=== PATIENT | male | born 1970 | race African-American/Black ===

== ENCOUNTER 2017-01-27 13:17 | Emergency (ER) | payer MEDICAID, OTHER ==
[~2017-01-27] VITALS: Ht 177.8 cm; Wt 103.9 kg
[~2017-01-27 13:17] MED LIST: CYCLOBENZAPRINE10 MG ORAL; TRAMADOL HCL50 MG ORAL
[2017-01-27] MEDS ORDERED: NKM (13:42)
[2017-01-27] MEDS ORDERED: Norco 5mg/325mg tab ORAL ONE (14:30)
[2017-01-27] MEDS ORDERED: NORCO 5-325 TA1 EAC1 ORAL (14:51)
[2017-01-27] MEDS ORDERED: IBUPROFEN600 MG ORAL (14:51)
[2017-01-27 14:55] VITALS: BP 124/86
--- NOTE | 2017-01-27 16:56 | Diagnostic Imaging Report ---
Indication: Left ankle pain Technique: 3 views of the left ankle Comparison: none Findings: Small osseous fragment seen at the tip of the medial malleolus, displaced by about 3 mm. Unusual small osseous fragment is seen adjacent to the posterior malleolus as well. There is overlying soft tissue swelling. The joint spaces are preserved. There is a large obtained spur Impression: Positive for medial and posterior malleolar avulsion fractures, suspect acute may correlate with clinical findings Soft tissue swelling Degenerative changes, as described
--- NOTE | 2017-01-27 22:42 | Emergency Room Report ---
History of Present Illness General Chief Complaint: Lower Extremity Injury Source: Patient (RENNY EASLEY) Present Illness Allergies: Coded Allergies: No Known Allergies (Unverified , 06/21/14) Patient History Past Medical History: see triage record Pertinent Family History: none Reviewed Nursing Documentation: PMH: Agreed, PSxH: Agreed (RENNY EASLEY) Nursing Documentation-PMH Past Medical History: No Stated History (RENNY EASLEY) Review of Systems All Other Systems: negative except mentioned in HPI (RENNY EASLEY) Physical Exam Vital Signs Date Time Temp Pulse Resp B/P (MAP) Pulse Ox O2 Delivery O2 Flow Rate FiO2 01/27/17 13:38 98.2 82 16 124/86 97 Room Air Sp02 EP Interpretation: reviewed, normal General Appearance: no apparent distress, alert, GCS 15, non-toxic Head: normocephalic, atraumatic Eyes: bilateral eye normal inspection, bilateral eye PERRL Musculoskeletal: no calf tenderness, decreased range of motion - L ankle, swelling - L ankle diffuse, tender - L ankle Neurologic: alert, oriented x3, responsive, motor strength/tone normal, sensory intact, speech normal Psychiatric: judgement/insight normal, memory normal, mood/affect normal, no suicidal/homicidal ideation Skin: normal color, no rash, warm/dry, well hydrated (RENNY EASLEY) Procedures Splinting Splinting : Consent: Verbal Location: L leg Hand-Made Type: plaster Splint: poserior short Pre-Proc Neuro Vasc Exam: normal Post-Proc Neuro Vasc Exam: normal Patient Tolerated: Well Complications: None (RENNY EASLEY.James) Medical Decision Making PA Attestation Dr. Shrestha is my supervising physician. Patient management was discussed with my supervising physician (RENNY EASLEY) Diagnostic Impression: Primary Impression: Ankle fracture Qualified Codes: S82.892A - Other fracture of left lower leg, initial encounter for closed fracture Additional Impression: Ankle sprain Qualified Codes: S93.402A - Sprain of unspecified ligament of left ankle, initial encounter ER Course The patient is a 46-year-old male presenting for left ankle pain. Ddx considered include but not limited to sprain/strain, fracture, contusion Physical exam: Vitals within normal limits. No apparent distress Left ankle: There is tenderness to palpation and edema over the L ankle diffusely. Limited active range of motion. Sensation intact to light touch. X-ray of the left ankle shows fractures of medial and posterior malleoli. L leg short posterior splint palced and the patient is provided crutches. ER precautions are given. Patient given prescription for Motrin and will follow up with ORTHO as soon as possible. (RENNY EASLEY) ER Course I reviewed and agree with PA's interpretation of XR results. Electronically signed by Fritz Shrestha MD (Fritz Shrestha M.D.) Other X-Ray Diagnostic Results Other X-Ray Diagnostic Results : X-Ray ordered: L ankle # of Views/Limited Vs Complete: 3 View Indication: Pain EP Interpretation: Yes Interpretation: no dislocation, other - fracture Impression: Other - fracture Electronically Signed by: JERRICA Melgar Scribe Text I have reviewed the xray with my supervising physician and interpretation is that there is no dislocation. There are two chip fractures (RENNY EASLEY P.ACourtney) Last Vital Signs Date Time Temp Pulse Resp B/P (MAP) Pulse Ox O2 Delivery O2 Flow Rate FiO2 01/27/17 14:55 98.2 89 20 124/86 100 Room Air Status: improved (RENNY EASLEY P.A.) Disposition: HOME, SELF-CARE Condition: Improved Scripts Hydrocodone Bit/Acetaminophen 5-325* (NORCO 5-325 TABLET*) 1 Each Tablet 1 TAB ORAL Q6HR Y for For Pain, #12 TAB Prov: RENNY EASLEY P.A. 01/27/17 Ibuprofen* (MOTRIN*) 600 Mg Tablet 600 MG ORAL Q8H Y for For Pain, #30 TAB 0 Refills Prov: RENNY EASLEY P.A. 01/27/17 Patient Instructions: Ankle Sprain, Ankle Fracture Additional Instructions: I discussed my findings with the patient. All questions and concerns have been answered. Treatment and medication compliance have been addressed. Return to ED if pain remains or worsens, numbness or tingling occurs, new rash is noticed, fever is noticed, or if needed for any reason. Patient verbalized understanding of discharge instructions. Please follow up with orthopedics as soon as possible RENNY EASLEY Jan 27, 2017 22:42 Fritz Shrestha M.D. Feb 01, 2017 06:25
== END 2017-01-27 14:55 | disposition home or self-care (01) ==
LOC: EMR 14:16
DX: S82.892A Other fracture of left lower leg, initial encounter for closed fracture (principal); S93.402A Sprain of unspecified ligament of left ankle, initial encounter; X58.XXXA Exposure to other specified factors, initial encounter; Y92.9 Unspecified place or not applicable
CPT/HCPCS: 29505; 99284

== ENCOUNTER 2017-03-16 16:35 | Emergency (ER) | payer MEDICAID, OTHER ==
[~2017-03-16] VITALS: Ht 177.8 cm; Wt 102.5 kg
[~2017-03-16 16:35] MED LIST changes: +IBUPROFEN600 MG ORAL; +NKM; +NORCO 5-325 TA1 EAC1 ORAL
[2017-03-16] MEDS ORDERED: IBUPROFEN600 MG ORAL (17:02)
[2017-03-16] MEDS ORDERED: NORCO 5-325 TA1 EAC1 ORAL (17:02)
[2017-03-16 17:15] VITALS: BP 135/88
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
== END 2017-03-16 17:15 | disposition home or self-care (01) ==
LOC: EDBD 16:35 → EMR 17:00
DX: S82.892D Other fracture of left lower leg, subsequent encounter for closed fracture with routine healing (principal); V29.9XXD Motorcycle rider (driver) (passenger) injured in unspecified traffic accident, subsequent encounter
CPT/HCPCS: 99283

== ENCOUNTER 2019-01-20 13:49 | Emergency (ER) | payer SELFPAY ==
[~2019-01-20] VITALS: Ht 177.8 cm; Wt 99.8 kg
[2019-01-20] MEDS ORDERED: SEROQUEL300 MG ORAL (14:06)
[2019-01-20 14:32] VITALS: BP 130/71
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
[2019-01-20] MEDS ORDERED: TYLENOL325 MG ORAL (15:34)
[2019-01-20] MEDS ORDERED: IBU800 MG PO (15:34)
--- NOTE | 2019-01-20 15:37 | Diagnostic Imaging Report ---
Indications:Trauma, pain Technique: Three or 4 views of the left elbow Comparison: None Findings: There is a joint effusion, manifested by elevation of the anterior and posterior fat pads. There is a lucency through the lateral aspect of the radial head head seen on the AP view and equivocally on the oblique view. On the lateral view, there is slight irregularity of the anterior aspect of the radial head cortex No evidence of acute fracture. No dislocations. Spurs are seen involving the coronoid and olecranon Impression: Joint effusion. Lucency through the radial head is suspicious radial head fracture. Correlate with clinical findings Degenerative changes, as described Findings discussed by phone with nurse practitioner Anaid in the emergency room at the time of interpretation
--- NOTE | 2019-01-20 15:50 | NUR ---
ER DISCHARGE NOTE: Patient is cleared to be discharged per ERMD, pt is aox4, on room air, with stable vital signs. pt was given dc and prescription instructions, pt was able to verbalize understanding, pt is able to ambulate with steady gait. pt took all belongings.
[2019-01-20 16:18] VITALS: BP 130/71
== END 2019-01-20 16:00 | disposition home or self-care (01) ==
LOC: EMR 14:26
DX: S52.122A Displaced fracture of head of left radius, initial encounter for closed fracture (principal); V28.4XXA Motorcycle driver injured in noncollision transport accident in traffic accident, initial encounter; Y92.410 Unspecified street and highway as the place of occurrence of the external cause
CPT/HCPCS: 29105; 99283